=== PATIENT | female | born 1990 | race African-American/Black ===

== ENCOUNTER 2021-12-13 10:09 | Outpatient (CLI) | payer OTHER, SELFPAY ==
[2021-12-13 10:44] LABS: Alanine Aminotransferase 22 U/L (6-35); Alkaline Phosphatase 51 U/L (38-126); Amylase 126 U/L (30-110); Anion Gap 3 mmol/L (8-16); Aspartate Amino Transferase 24 U/L (14-36); Bilirubin,Total 0.4 mg/dL (0.2-1.3); Blood Urea Nitrogen 10 mg/dL (7-17); Calcium 8.7 mg/dL (8.4-10.2); Carbon Dioxide 29 mmol/L (22-30); Chloride 106 mmol/L (98-107); Estimated Glomerular Filt Rate > 60; Glucose 115 mg/dL (65-110); Lipase 295 U/L (23-300); Potassium 3.8 mmol/L (3.4-5.0); Sodium 138 mmol/L (137-145)
== END 2021-12-13 10:10 | disposition home or self-care (01) ==
LOC: ANHLAB 10:15
PROVIDERS: Visit Provider Surgery
DX: Z01.818 Encounter for other preprocedural examination (principal); K80.10 Calculus of gallbladder with chronic cholecystitis without obstruction
CPT/HCPCS: 36415; 80053; 82150; 82248; 83690; 86850; 86900; 86901

== ENCOUNTER 2021-12-15 01:01 | Day surgery (SDC) | payer OTHER, SELFPAY ==
[2021-12-07 10:44] VITALS: BMI 30.7
--- NOTE | 2021-12-07 11:10 | PC.NURSE ---
Addendum entered by Amy Luevano RN 12/07/21 11:25: Hibiclens soap Told patient on the phone about it. Original Note: Report to the Outpatient Waiting Room, entrance under the [place] [facility] located off [facility], at 1100 on 12-15-21. OR Time: 1300. - You and your visitor will be asked a series of questions to screen for COVID 19 for your protection. - Only one visitor is allowed at this time. - The patient visitor is requested to leave or wait in car when not with patient. - A mask is required within the hospital. Patients may have clear liquids (water, carbonated beverages, clear teas, apple juice) until 3 hours prior to surgery with a maximum of 20 ounces. 1000 - No food from midnight until time of surgery - Infants may have breast milk until 4 hours before surgery, formula 6 hours prior to surgery. - Children will be allowed to drink immediately following surgery. If applicable, please bring a bottle or sippy cup to assist with drinking. Juice, water, soda, and popsicles are readily available. For infants on formula, please bring formula the day of surgery. Pacifiers are allowed. Take the following medications with a SIP of water the morning of surgery: None Medications to discontinue per physician: Vitamins and supplements Date to take last dose: 12-12-21 Please no make-up, nail chinese, hairspray, perfume, deodorant, or body powder the day of surgery. No jewelry (including any body piercings) or valuables the day of surgery, leave them at home. Please take a shower or bath the night before, or the morning of, surgery with an antibacterial soap. Wear comfortable, loose fitting clothing. Children are encouraged to wear pajamas. - Jewelry must be removed prior to entering the operating room. Rings and piercings that are not removed may be cut off. - The hospital will not accept responsibility for valuables. - Please leave all valuables, including medications, at home the day of surgery. If you are going home after surgery, a licensed dedicated driver must drive you home. - NO public transportation without another adult. - We recommend that an adult stay with you for 24 hours following discharge. - We also recommend that you do not drive, make important decision, drink alcoholic beverages, or take any drugs that were not prescribed by your health care provider for at least 24 hours after your discharge time. For Pediatric surgeries, we recommend two adults accompany the child home (only one inside the building at this time). Follow any additional instructions given to you from your surgeon. If you or anyone in your household have experienced Covid symptoms in the past week, please notify your surgeon or the nurse liaison at the phone number below for possible testing. Telephone instructions given to Galindo Kirk and asked if any additional questions and then verbalized understanding. Patient advised to call surgeon office or pre surgery nurse liaison [phone] if any additional questions.
--- NOTE | 2021-12-14 15:04 | PM.SD2 ---
Same Day Admit/Disch: HPI History of Present Illness Chief complaint: Chronic Cholecystitis with Stones Narrative: Galindo Kirk is a 31 year old female Who has had multiple episodes of postprandial right upper quadrant pain associated with nausea and sometimes vomiting. Her symptoms began over a year ago in November of 2020 when she was . These attacks of pain are described as a squeezing pain and worse after eating fatty or greasy foods. They radiate to her back. After delivery, she continued to have occasional episodes. She had an ultrasound last June which showed numerous gallstones. She has had significant improvement in her symptoms with a low-fat diet. She was seen in the office and after discussion is now taken to surgery for laparoscopic cholecystectomy. [facility], [facility] Past Medical History Medical History History of blood transfusion Surgical History Surgical History H/O dilation and curettage 2008, 2011, 2020 History of salpingectomy Family History Family History Father Lung cancer Mother Hypertension Social History Social History Smoking status: Never smoker Second hand tobacco smoke exposure: No Alcohol intake: never Alcohol use details: SOCIALLY Substance use: never Substance use type: does not use Living arrangements: with family Spiritual care concerns: No Same Day Admit/Disch: Med Pre-admit Medications Home Medications Medication Instructions Recorded Confirmed Type cholecalciferol (vitamin D3) 1,250 mcg PO WEEKLY 12/07/21 12/15/21 History hydrocodone-acetaminophen 1 - 2 tablet PO Q6H PRN #10 tablet 12/15/21 Rx ketorolac 10 mg PO Q6H 4 Days #16 tablet 12/15/21 Rx Exam Const: General: comfortable, no acute distress, alert and awake HENMT: Head: normocephalic and atraumatic Mouth: Yes Normal oral and palatal mucosa present Eyes: Conjunctivae: conjunctivae normal Pupils: Equal, round and reactive pupils present EOM: EOMs intact bilaterally Neck: Neck: normal visual inspection, no lymphadenopathy and nontender Resp: Effort & Inspection: normal respiratory effort Auscultation: clear to auscultation bilaterally Cardio: Rate: regular rate Rhythm: regular rhythm Heart sounds: no gallops, no murmurs and no rubs GI: Inspection: non-distended GI Palp: Yes Soft to palpation, No Tenderness to palpation present (GI), No Hepatomegaly present and No Splenomegaly present Skin: Lesions: no lesions Rashes: no rashes Neuro: General: no focal motor deficits and CN's II-XI intact bilaterally Cranial nerves: Yes Equal, round and reactive pupils present, Yes Bilaterally intact EOM present, Yes facial symmetry and Yes Midline tongue present Speech: normal speech Motor exam (neuro): 5/5 motor strength present throughout and Motor abnormalities not present Extrem: General: no clubbing, cyanosis or edema and edema Psych: Affect: normal affect Thought process: Normal thought process present Insight: Good insight present (Psych) DS: Summary Time Spent with Patient Time attestation: Total time spent providing and/or coordinating discharge services: DS: Admitting Diagnosis Discharge Date 12/15/2021 Admitting Diagnosis chronic cholecystitis, cholelithiasis- after discussion, patient agrees to go ahead with laparoscopic cholecystectomy. The procedure, risks, benefits and usual recovery have been discussed. All questions were answered. She understands and agrees to go ahead. DS: Discharge Diagnosis Discharge Diagnosis (1) Chronic cholecystitis with calculus: Code(s): K80.10 - Calculus of gallbladder with chronic cholecystitis without obstruction Status: Chronic Discharge Plan Discharge Patient Disposition: Home, Self-Care
[2021-12-15] VITALS (9 sets, daily range): BP systolic 93–135; BP diastolic 53–83; PULSE 50–84; RESP 13–18; TEMP 36.2–36.6; O2SAT 100; BMI 30.3
--- NOTE | 2021-12-15 07:10 | WPDHPUPDATE1 ---
History and Physical Update Update Date/Time: 12/15/21 07:10 History and Physical has been reviewed, including an updated exam of the patient. There are NO changes in the patient's condition. Risks, benefits, and alternatives have been discussed and questions answered. Patient agrees to proceed with procedure.
[2021-12-15] MEDS: KETOROLAC 15 MG/ML VIAL (*BKC) IV PUSH (10:07)
[2021-12-15] MEDS: LACTATED RINGERS 1,000 ML 30 ML IV CONT ×2 (10:07→12:11)
[2021-12-15] MEDS: ACETAMINOPHEN 500 MG TABLET 1000 MG PO (10:07)
--- NOTE | 2021-12-15 10:15 | P.PNAN_ITS ---
Anes - Initial Pre Proc Eval Procedure: Operation Date: 12/15/21 11:30 Proposed Procedures p Laparoscopic Cholecystectomy - Jesus Mejia MD Date/Time: 12/15/21 10:15 Surgeon: Jesus Mejia MD Pre Op Diagnosis: Chronic Cholecystitis with Stones Patient Data Age: 31 Gender: F Height: 1.65 m Weight: 82.75 kg Last Vital Signs Temp 97.8 F 12/15/21 09:50 Pulse 50 L 12/15/21 09:50 Resp 16 12/15/21 09:50 BP 117/63 12/15/21 09:50 Pulse Ox 100 12/15/21 09:50 Allergies Allergy/AdvReac Type Severity Reaction Status Date / Time metronidazole Allergy Intermediate Swelling Verified 12/15/21 09:53 Home Medications Medication Instructions Recorded Confirmed Type cholecalciferol (vitamin D3) 1,250 mcg PO WEEKLY 12/07/21 12/15/21 History Patient hx anesthesia problems: none Family hx anesthesia problems: none Results Review: All pre-operative results and documents have been reviewed as part of the pre-operative evaluation. [facility] Past Medical History Medical History History of blood transfusion Surgical History Surgical History H/O dilation and curettage 2008, 2011, 2020 History of salpingectomy Family History Family History Father Lung cancer Mother Hypertension Social History Social History Smoking status: Never smoker Second hand tobacco smoke exposure: No Alcohol intake: never Alcohol use details: SOCIALLY Substance use: never Substance use type: does not use Living arrangements: with family Spiritual care concerns: No Anes - Eval Final PreProcedure Day of Procedure 12/15/21 10:15 Patient weight: obese Heart: regular rate and rhythm Lungs: clear to auscultation and normal air movement Airway: Mallampati scale class II (braces) Neurological: alert and oriented Last oral intake: >/= 8 hours ASA classification: II Emergent: no Anesthetic plan: proceed Anesthesia type and monitoring: general ETT and standard monitoring Results Review: All pre-operative results and documents have been reviewed as part of the pre-operative evaluation. Informed Consent: The patient's anesthetic plan and its attendant risks and benefits were discussed with the patient/family/POA. Questions were solicited and answers provided to the satisfaction of the patient/family/POA.
[2021-12-15] MEDS: ceFAZolin 2 GM/D5W 50 ML 2 GM/50 ML BAG IVPB (11:05)
--- NOTE | 2021-12-15 11:09 | SUR.PREOP ---
1045; OFFERED TO TAKE PT TO BATHROOM. PT DECLINED. 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
--- NOTE | 2021-12-15 11:21 | SUR.OPER ---
PATIENT READY TO PREP IN OR AND NOTED 4 STRAND PLASTIC BEAD UNIT NECKLACE AROUND WAIST NO METAL. JON IN PRE OP CALLED AND PATIENT DID NOT INFORM HER OF THIS BEAD NECKLACE. PATIENT DENIED METAL IN BODY OR JEWELRY WHEN I ASKED HER IN PRE OP INTERVIEW. NECKLACE UNIT UNDER BREASTS AND TAPPED IN PLACE. DR HATFIELD ASSESSED AND TO LEAVE ON. NO WAIVER DUE TO NO PATIENT DISCLOSURE.
[2021-12-15] MEDS: LIDO 1%/EPINEPHRINE 1:100,000 50 ML VIAL 30 ML INFILTRATE (11:43)
--- NOTE | 2021-12-15 12:31 | P.OP_ITS ---
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 She was noted on ultrasound to have numerous gallstones. She is taken to surgery now for laparoscopic cholecystectomy. Findings Chronic inflammation and multiple stones in the gallbladder. No liver abnormalities. No biliary ductal dilatation. Description of Procedure Patient was taken to surgery and induced into general anesthesia. The abdomen is prepped and draped. Trocars were placed in the usual fashion using 1% lidocaine with epinephrine and applied Medical optical trocars. A 5 mm camera was used. The gallbladder was retracted anterosuperiorly. Traction was placed on the infundibulum and the cholecystohepatic triangle was exposed. Dissection was carried out in the cholecystohepatic triangle. The cystic duct and cystic artery were dissected out very carefully. The gallbladder was dissected off the liver at its lower 3rd. Critical view was achieved. I then securely clipped and divided the cystic duct cystic artery. The gallbladder was then further dissected free of its attachments to the liver. Cautery was used for hemostasis as some of the chronic inflammation made the attachment to the liver more dense. Once the gallbladder was freed completely, it was placed in an Endo-Catch bag and retrieved through the 10 11 epigastric trocar. We had to slightly dilate the epigastric trocar site to accommodate the gallbladder. Once the gallbladder was removed, I replaced the epigastric trocar and we reviewed the right upper quadrant. Some additional cautery was used as well as repeated irrigation with saline and suctioning of the right upper quadrant irrigant. Eventually all looked quite hemostatic with no evidence of bile leak or bleeding. I then used the Farrukh cone and Farrukh-Blade suture pass device. The fascia at the epigastric trocar site was closed with an 0 Vicryl suture. We evacuated CO2 and removed the trocar sleeves. All skin wounds were closed with subcuticular 4-0 Monocryl skin suture. The wounds were dressed with Exofin surgical adhesive. The patient was awakened and taken to recovery in good condition. Sponge and needle counts were correct x2. Estimated Blood Loss -10.0 Drains No Packing No Pathology Yes (Gallbladder) Complications No immediate complications Condition Stable Disposition PACU
[2021-12-15] MEDS: oxyCODONE HCL (*CRX) 5 MG TAB IR PO (13:19)
== END 2021-12-15 14:16 | disposition home or self-care (01) ==
PROVIDERS: Visit Provider Surgery
PROC: 0FT44ZZ Resection of Gallbladder, Percutaneous Endoscopic Approach (ICD-10-PCS; CPT 47562; principal; 2021-12-15 11:30)
DX: K80.10 Calculus of gallbladder with chronic cholecystitis without obstruction (principal); E66.9 Obesity, unspecified; Z68.30 Body mass index [BMI] 30.0-30.9, adult
CPT/HCPCS: 47562; 88304; A9270; C1713; J0690; J1100; J1885; J2250; J2405; J2704; J2710; J3010; J7030; J7120